=== PATIENT | male | born 1990 | race Caucasian/White ===

== ENCOUNTER → 2016-06-21 | Outpatient (REF) ==
[~2016-06-21] MED LIST: CEPHALEXIN500 M1 PO; NO HOME MEDICATIONS
== END ==
LOC: WSOH 14:28
DX: Z01.83 Encounter for blood typing (principal)

== ENCOUNTER → 2016-06-30 | Outpatient (CLI) | payer OTHER | LOC: COL.RAD 09:20 | DX: M25.561 Pain in right knee (principal) ==

== ENCOUNTER 2016-07-19 13:38 | Outpatient (RCR) | payer OTHER | END 2016-08-25 13:08 | LOC: WSOH 13:38 | DX: S83.411A Sprain of medial collateral ligament of right knee, initial encounter (principal); M25.561 Pain in right knee; X50.9XXA Other and unspecified overexertion or strenuous movements or postures, initial encounter; Y99.0 Civilian activity done for income or pay | CPT/HCPCS: 24091; A6549 ==

== ENCOUNTER 2018-11-04 00:52 | Emergency (ER) | payer BC ==
[~2018-11-04] VITALS: Ht 198.1 cm; Wt 109.1 kg
[2018-11-04 00:54] VITALS: BP 131/74; TEMP 98.4
[2018-11-04 01:50] VITALS: PULSE 91
[2018-11-04 02:41] LABS: HIV 1/2 Antibodies Non-Reactive; HIV-1p24 Antigen Non-Reactive
[2018-11-04 19:05] LABS: HEPATITIS B SURFACE ANTIBODY 48.5 (()); HEPATITIS B SURFACE ANTIGEN Negative (Negative); HEPATITIS C VIRUS ANTIBODY Negative (Negative)
== END 2018-11-04 01:50 | disposition home or self-care (01) ==
LOC: COL.ER 00:52
PROVIDERS: Nurse Practitioner
DX: Z77.21 Contact with and (suspected) exposure to potentially hazardous body fluids (principal)